=== PATIENT | male | born 1985 | race Caucasian/White ===

== ENCOUNTER 2019-11-28 10:45 | Emergency (ER) | payer OTHER ==
--- NOTE | 2019-11-28 11:02 | ED Physician Documentation ---
PD HPI GI BLEED - Stated complaint Stated Complaint: SYNCOPE - Chief complaint Chief Complaint: Neuro - History obtained from History obtained from: Patient - History of Present Illness Timing - onset: Today Timing - duration: Minutes (he had BM that was somewhat firm and noted bright red as he wiped, then lookin in toilet and noted formed stool with bright red blood and small clot around the stool. No melena.) Timing - details: Abrupt onset Associated symptoms: BRBPR (he states it did hurt at rectal area as he had the BM.), Dizzy. No: Fever, Loss of appetite Contributing factors: No: Sick contact, Bad food, Travel, Recent antibiotics Similar symptoms before: Has not had sx before Review of Systems Constitutional: denies: Fever, Chills, Myalgias Nose: denies: Rhinorrhea / runny nose, Congestion Throat: denies: Sore throat Respiratory: denies: Cough GI: reports: Bloody / black stool (just today). denies: Nausea, Vomiting, Di arrhea, Hematemesis Neurologic: reports: Near syncope (felt lightheaded after having the BM with blood in it.). denies: Focal weakness, Numbness PD PAST MEDICAL HISTORY - Past Medical History Past Medical History: No GI: GERD Psych: Depression - Present Medications Home Medications: Ambulatory Orders Medication Instructions Recorded Confirmed Hydrocortisone Acetate [Anucort-Hc] 25 mg RC DAILY #5 supp.rect 11/28/19 Omeprazole 10 mg PO DAILY 11/28/19 11/28/19 Polyethylene Glycol 3350 [Miralax] 17 gm PO DAILY PRN #1 bottle 11/28/19 Sertraline HCl [Zoloft] 100 mg PO DAILY 11/28/19 11/28/19 - Allergies Allergies/Adverse Reactions: Allergies Allergy/AdvReac Type Severity Reaction Status Date / Time No Known Drug Allergies Allergy Verified 11/28/19 10:55 - Social History Does the pt smoke?: No Smoking Status: Never smoker Does the pt drink ETOH?: Yes Does the pt have substance abuse?: No - Immunizations Immunizations are current?: Yes PD ED PE NORMAL - Vitals Vital signs reviewed: Yes - General General: Alert and oriented X 3, No acute distress, Well developed/nourished - Cardiac Cardiac: RRR, No murmur - Respiratory Respiratory: Clear bilaterally - Abdomen Abdomen: Soft, Non tender - Male Male : Deferred - Rectal Rectal: Other (scant amount of bright red blood on rectal. There is small nontender external hemorrhoid and palpable internal hemorrhoid at 8 o'clock position. No noted active bleeding. No stool in vault.) - Derm Derm: Normal color, Warm and dry - Neuro Neuro: Alert and oriented X 3, No motor deficit, Normal speech Results - Vitals Vitals: Vital Signs - 24 hr 11/28/19 11/28/19 11/28/19 10:45 11:26 12:38 Temperature 36.6 C 36.4 C L Heart Rate 54 L 74 Heart Rate [ 72 Sitting] Heart Rate [ 71 Standing] Heart Rate [ 70 Supine] Respiratory 17 22 Rate Blood Pressure 126/79 132/85 H Blood Pressure 128/78 [Sitting] Blood Pressure 134/88 H [Standing] Blood Pressure 133/72 H [Supine] O2 Saturation 100 99 Oxygen O2 Source Room air - EKG (time done) 10:52 Rate: Rate (enter#) (53) Rhythm: Sinus bradycardia, NSR [place]: Normal Intervals: Normal CO QRS: Normal Ischemia: Normal ST segments. No: ST elevation c/w ischemia, ST depression - Labs Labs: Laboratory Tests 11/28/19 11/28/19 11/28/19 11:00 11:05 11:05 WBC 5.4 RBC 4.72 Hgb 14.3 Hct 41.6 L MCV 88.1 MCH 30.3 MCHC 34.4 RDW 12.0 Plt Count 252 MPV 9.5 Neut # (Auto) 3.0 Lymph # (Auto) 1.9 [place] # (Auto) 0.3 Eos # (Auto) 0.1 Baso # (Auto) 0.0 Absolute Nucleated RBC 0.00 Nucleated RBC % 0.0 Sodium 141 Potassium 4.2 Chloride 106 Carbon Dioxide 25 Anion Gap 10.0 BUN 22 H Creatinine 1.0 Estimated GFR (MDRD) 85 L Glucose 116 H POC Whole Bld Glucose 106 H Calcium 9.0 Total Bilirubin 0.7 AST 23 ALT 23 Alkaline Phosphatase 52 Troponin I High Sens Total Protein 6.9 Albumin 4.2 Globulin 2.7 Albumin/Globulin Ratio 1.6 Lipase 27 11/28/19 11:05 WBC RBC Hgb Hct MCV MCH MCHC RDW Plt Count MPV Neut # (Auto) Lymph # (Auto) [place] # (Auto) Eos # (Auto) Baso # (Auto) Absolute Nucleated RBC Nucleated RBC % Sodium Potassium Chloride Carbon Dioxide Anion Gap BUN Creatinine Estimated GFR (MDRD) Glucose POC Whole Bld Glucose Calcium Total Bilirubin AST ALT Alkaline Phosphatase Troponin I High Sens 2.3 Total Protein Albumin Globulin Albumin/Globulin Ratio Lipase PD MEDICAL DECISION MAKING - ED course Complexity details: reviewed results, considered differential ( likely hemorrhoidal bleeding, with palpable hemorrhoid on exam. No notable blood in vault. Vitals stable and good blood count. Follow up with PMD/surgery, for consideration of sigmoidoscopy or colonoscopy, particularly if persistent symptoms. ), d/w patient Departure - Departure Disposition: Home, Self Care Clinical Impression: Rectal bleeding Syncope Qualifiers: Syncope type: vasovagal syncope Qualified Code(s): R55 - Syncope and collapse Condition: Stable Record reviewed to determine appropriate education?: Yes Instructions: ED Hematochezia Stable, ED Syncope Vasovagal Follow-Up: JACQUELINE James [Provider Group] Osmar Shafer MD [Provider Admit Priv/Credential] - Prescriptions: Hydrocortisone Acetate [Anucort-Hc] 25 mg RC DAILY #5 supp.rect Polyethylene Glycol 3350 [Miralax] 17 gm PO DAILY PRN #1 bottle PRN Reason: Constipation Comments: Stay well-hydrated. Use the Anusol anti-inflammatory suppository daily for the next 3 to 5 days to help with the hemorrhoidal inflammation. Daily stool softener such as MiraLAX or docusate to have soft stools. Recheck if persistent blood with the bowel movements more than 2 to 3 days. Follow-up with your primary care and/or general surgery as a sigmoidoscopy or colonoscopy may be appropriate to verify the cause of bleeding and see if any other intervention is needed. Discharge Date/Time: 11/28/19 12:38
[2019-11-28 11:13] LABS: BASOPHILS % (AUTO) 0.4 %; EOSINOPHILS # (AUTO) 0.1 10^3/uL (0.0-0.7); HGB - HEMOGLOBIN 14.3 g/dL (14.0-18.0); LYMPHOCYTES # (AUTO) 1.9 10^3/uL (1.5-3.5); LYMPHOCYTES % (AUTO) 36.1 %; MEAN CORPUSCULAR HEMOGLOBIN 30.3 pg (27.0-31.0); MEAN CORPUSCULAR HGB CONC 34.4 g/dL (32.0-36.0); MEAN CORPUSCULAR VOLUME 88.1 fL (80.0-94.0); MEAN PLATELET VOLUME 9.5 fL (7.4-11.4); MONOCYTES # (AUTO) 0.3 10^3/uL (0.0-1.0); MONOCYTES % (AUTO) 5.2 %; NEUTROPHILS % (AUTO) 55.4 %; PLT - PLATELET COUNT 252 10^3/uL (130-450); RED BLOOD COUNT 4.72 10^6/uL (4.70-6.10); WHITE BLOOD COUNT 5.4 x10^3/uL (4.8-10.8)
[2019-11-28 11:26] LABS: ALBUMIN 4.2 g/dL (3.2-5.5); ALBUMIN/GLOBULIN RATIO 1.6 (1.0-2.2); BILIRUBIN,TOTAL 0.7 mg/dL (0.2-1.0); TOTAL PROTEIN 6.9 g/dL (6.7-8.2)
[2019-11-28] MEDS ORDERED: SODIUM CHLORIDE 0.9% 1,000 ML IV STA (11:26)
[2019-11-28] MEDS ORDERED: KETOROLAC 30 MG/ML VIAL IVP STA (11:26)
[2019-11-28 12:38] VITALS: BP 132/85
== END 2019-11-28 12:38 | disposition home or self-care (01) ==
LOC: ED 10:45
DX: K62.5 Hemorrhage of anus and rectum (principal); R55 Syncope and collapse
CPT/HCPCS: 36415; 80053; 83690; 84484; 85025; 93005; 96361; 96374; 99284